=== PATIENT | female | born 2005 | race Caucasian/White ===

== ENCOUNTER 2023-10-07 11:23 | Emergency (ER) | payer OTHER, SELFPAY ==
--- NOTE | 2023-10-07 11:27 | ED.URI ---
HPI - URI/Sore Throat General Chief Complaint: Upper Respiratory Infection Stated Complaint: Cold symptoms Time Seen by Provider: 10/07/23 11:27 Source: patient Mode of arrival: ambulatory Limitations: no limitations History of Present Illness HPI Narrative: Arielle is a 17-year-old female patient presenting to the clinic today with complaints of sinus pressure, congestion, and cough. She reports that the symptoms have been going on for over 1 month. Has had low-grade fevers off and on. Denies any chest pain or shortness of breath. States nasal drainage is green and yellow and she is coughing up green and yellow phlegm. MD elicited complaint: fever, cough, nasal congestion and sinus pain Related Data Allergies Allergy/AdvReac Type Severity Reaction Status Date / Time No Known Allergies Allergy Mild Verified 10/07/23 11:39 Review of Systems Review of Systems: Pertinent positives per HPI. Patient denies any fever, chills, rash, headache, visual changes, dizziness, cough, shortness of breath, chest pain, palpitations, nausea, vomiting, diarrhea, constipation, abdominal pain, or any urinary issues. [facility] Past Medical History Medical History BMI 27.0-27.9,adult BMI 28.0-28.9,adult BMI,pediatric 85% - <95% (06/23/18) Clear vaginal discharge Dietary counseling and surveillance (11/17/17) Encounter for routine child health examination with abnormal findings Encounter for routine child health examination without abnormal findings Heartburn Needs flu shot School physical exam Skin lesion, infected Unspecified curvature of spine Upper back pain Vaginal yeast infection Family History Family History Mother Hypertension Family history of type 2 diabetes mellitus Father No problems noted. Sibling No problems noted. Social History Social History Smoking status: Never smoker Second hand tobacco smoke exposure: No Alcohol intake: never Substance use: never Substance use type: does not use Living arrangements: with family Occupation/Education: student Additional occupation/education comments: 12th Gender identity (if verbalized by the patient): Female Comments At the time of my signature, I reviewed and agree with the nursing past medical, surgical, social, and family history. There is no relevant family history pertinent to the patient complaint. Exam Narrative: General: Well-developed, well nourished, in no apparent distress Head: Normocephalic, atraumatic Eyes: Pupils equally round and reactive to light bilaterally, EOM intact, sclera and conjunctive clear, no discharge, lids normal Ears: TMs intact and clear, ear canals clear, no drainage, grossly hearing normal. Nose: Nares patent, yellow nasal discharge, moderate inflammation, maxillary and frontal sinus tenderness. Mouth: Oral pharynx without lesions or masses, good dentition, MMM. Postnasal drip Neck: Supple, trachea midline, no enlargement of anterior or posterior cervical nodes, no thyroid masses or goiter palpable. Cardio: Regular rate and rhythm, s1 and s2 normal, no murmur appreciated. Resp: Clear to auscultation bilaterally, no rhonchi, rales, wheezing or rubs Course Course Emergency Course: Portions of this record may have been created with voice recognition software. Level of Care: Express Care Visit Vital Signs Vital signs: Vital signs reviewed MDM - URI/Sore Throat MDM Narrative Medical decision making narrative: At the time of visit patient is resting comfortably on the exam table. Patient appears to be nontoxic. Plan: I suspect patient has acute bacterial rhinosinusitis. Prescription for Augmentin, prednisone, and Diflucan was sent to the pharmacy. Supportive measures were discussed with the patient and they voiced unders
[2023-10-07 11:43] VITALS: BP 120/70; PULSE 92; RESP 18; TEMP 37.3; O2SAT 100
== END 2023-10-07 11:48 | disposition home or self-care (01) ==
PROVIDERS: Emergency Provider Nurse Practitioner Family; PCP Family Medicine
DX: J01.90 Acute sinusitis, unspecified (principal)
CPT/HCPCS: 99213; G0463